=== PATIENT | male | born 1990 | race Two or more races ===

== ENCOUNTER 2024-09-28 17:02 | Inpatient (IN) | payer BC, OTHER ==
[~2024-09-28] VITALS: Ht 188 cm; Wt 114.2 kg
--- NOTE | 2024-09-28 17:20 | ED.PDOC ---
GI ASSESSMENT HPI Comments 34-year-old male brought in by self complaining of lower abdominal pain, nausea, bilious vomiting, and watery diarrhea for the past 4-5 days. He states he is unable to tolerate any food or liquids. He denies fever or known sick contacts. He states he did travel here for work and ate at a restaurant after which he developed the symptoms. Chief Complaint: Abdominal Pain Time Seen by MD: 17:10 Allergies: Coded Allergies: NO KNOWN ALLERGIES (Unverified , 09/28/24) Home Meds Reported Medications Triazolam (Triazolam) 0.125 Mg Tab, 3 TAB PO 09/29/24 Quetiapine Fumerate (QUETIAPINE FUMARATE) 25 Mg Tab, 1-3 TAB PO QHSP PRN for insomnia 09/29/24 Gabapentin (Gabapentin) 300 Mg Cap, PO 09/29/24 Hydroxyzine Hcl (Hydroxyzine Hcl) 25 Mg Tab, 1 TAB PO TID 09/29/24 Information Source: Patient Mode of Arrival: Ambulatory Past Medical History PAST MEDICAL HISTORY: Denies Surgical History: Appendectomy, Hernia Repair Family History Family History: Reviewed,noncontributory to illness Social History Smoker: Quit Greater Than 1 Year Alcohol: Denies ETOH Use Drugs: Denies Drug Use Lives In: Home All Other Systems: Reviewed and Negative (Comprehensive systems review obtained and negative except for what is stated in the HPI.) Physical Exam General Appearance: No Apparent Distress HEENT: Other (Pupils and face symmetric. Moist mucous membranes.) Neck: Full Range of Motion, Normal Inspection Respiratory: Lungs Clear, No Accessory Muscle Use, No Respiratory Distress, Normal Breath Sounds Cardiovascular: No Edema, No JVD, Regular Rate/Rhythm Breast Exam: Deferred Gastrointestinal: Soft, Tenderness (Generalized lower abdominal tenderness to palpation. Nontender to percussion. No rebound or guarding.) Genitalia: Deferred Pelvic: Deferred Rectal: Deferred Extremities: Normal inspection, Normal range of motion, Non-tender, No pedal edema Neurologic: Alert (Oriented x4), Normal Affect, Normal Mood, Other (Ambulatory) Cerebellar Function: NOT DONE Reflexes: NOT DONE Skin: Dry, Normal Color, Warm Lymphatic: NOT DONE Was a procedure done? Was a procedure done?: No GI differential Dx Differential Diagnosis: Diverticular disease, Gastritis/PUD, Gastroenteritis, Inflammatory BD, Ischemic Bowel, UTI, Dehydration, Diabetes/ DKA, Electrolyte Imbalance, Food Poisoning, Bacterial, Viral, Hypovolemia, Other (Colitis) X-Ray, Labs, Meds, VS Vital Signs Date Time Temp Pulse Resp B/P (MAP) Pulse Ox O2 Delivery O2 Flow Rate FiO2 09/28/24 18:38 78 18 135/76 09/28/24 17:17 98.3 89 22 130/101 (111) 96 98.3 Lab Test 09/28/24 17:22 09/28/24 17:13 Range/Units White Blood Count 9.6 4.4-10.8 10^3/uL Red Blood Count 5.98 H 4.5-5.90 10^6/uL Hemoglobin 16.2 13.5-17.5 g/dL Hematocrit 46.4 41.0-53.0 % Mean Corpuscular Volume 77.7 L 80.0-100.0 fL Mean Corpuscular Hemoglobin 27.1 L 28.0-32.0 pg Mean Corpuscular Hemoglobin Concent 34.9 32.0-36.0 g/dL Red Cell Distribution Width 15.2 H 11.8-14.3 % Platelet Count 297 140-450 10^3/uL Mean Platelet Volume 8.1 6.9-10.8 fL Neutrophils (%) (Auto) 70.9 37.0-80.0 % Lymphocytes (%) (Auto) 19.6 10.0-50.0 % Monocytes (%) (Auto) 9.2 0.0-12.0 % Eosinophils (%) (Auto) 0.0 0.0-7.0 % Basophils (%) (Auto) 0.3 0.0-2.0 % Neutrophils # (Auto) 6.8 1.6-8.6 10 ^3/uL Lymphocytes # (Auto) 1.9 0.4-5.4 10 ^3/uL Monocytes # (Auto) 0.9 0-1.3 10 ^3/uL Eosinophils # (Auto) 0 0-0.8 10 ^3/uL Basophils # (Auto) 0 0-0.2 10 ^3/uL Nucleated Red Blood Cells 0.0 % Sodium Level 145 136-145 mmol/L Potassium Level 3.5 3.5-5.1 mmol/L Chloride Level 106 98-107 mmol/L Carbon Dioxide Level 26 20-31 mmol/L Anion Gap 13 5-15 Blood Urea Nitrogen 26 H 9-23 mg/dL Creatinine 1.09 0.700-1.30 mg/dL Glomerular Filtration Rate Calc 91 >90 mL/min BUN/Creatinine Ratio 23.9 H 10.0-20.0 Serum Glucose 106 74-106 mg/dL Calcium Level 10.5 H 8.7-10.4 mg/dL Total Bilirubin 1.1 H 0.2-1.0 mg/dL Aspartate Amino Transferase (AST) 17 13-40 U/L Alanine Aminotransferase (ALT) 44 H 7-40 U/L Alkaline Phosphatase 87 46-116 U/L Total Protein 8.1 5.7-8.2 g/dL Albumin 5.4 H 3.2-4.8 g/dL Urine Color Yellow Yellow Urine Clarity Clear Clear Urine pH 6.0 5.0-9.0 Urine Specific [place] 1.037 H 1.001-1.035 Urine Protein 1+ H Negative Urine Ketones 2+ H Negative Urine Blood Negative Negative /uL Urine Nitrite Negative Negative Urine Bilirubin Negative Negative Urine Urobilinogen Normal Negative mg/dL Urine Leukocyte Esterase Negative Negative /uL Urine RBC 1 0 - 3 /hpf Urine Microscopic WBC < 1 0-3 /HPF Urine Squamous Epithelial Cells Few <5 /hpf Urine Bacteria None seen None Seen /hpf Urine Mucus Few None Seen Urine Glucose Normal Normal mg/dL Current Medications Medications (Trade) Dose Ordered Sig/Jacqui Route Start Time Stop Time Status Last Admin Sodium Chloride 2,000 ml @ 1,000 mls/hr Q2H ONCE IV 09/28/24 17:15 09/28/24 19:14 DC 09/28/24 18:26 Ondansetron HCl (Zofran) 4 mg ONCE ONCE IV 09/28/24 17:15 09/28/24 17:17 DC 09/28/24 18:26 Pantoprazole Sodium (Protonix) 40 mg ONCE ONCE IV 09/28/24 17:15 09/28/24 17:17 DC 09/28/24 18:26 Morphine Sulfate 4 mg ONCE ONCE IV 09/28/24 17:15 09/28/24 17:17 DC 09/28/24 18:38 Piperacillin Sod/ Tazobactam Sod 100 ml @ 100 mls/hr ONCE ONCE IV 09/28/24 17:30 09/28/24 18:29 DC 09/28/24 18:26 [facility] [id number] [facility] [id number] Ph: [phone] DIAGNOSTIC IMAGING Diagnostic Imaging Report : [id number] Signed PATIENT: BOGDAN REEDCCT: [id number] UNIT: [id number] : 1990 LOC: ER ROOM / BED: / AGE / SEX: 34 / M ADM STATUS: REG ER SERVICE 1712 ORDERING PHYSICIAN: GAY CARMONA MD PROCEDURE(s): ABPL - CT AB PEL WO CON-NO ORAL OR IV REASON: Lower abdominal pain, bilious vomiting, diarrhea ORDER NUMBER(s): [id number], ACCESSION NUMBER(s): [id number] Indication: Lower abdominal pain, bilious vomiting, diarrhea Technique: CT axial images of the abdomen and pelvis are obtained without contrast. Coronal and sagittal reformats were obtained. Radiation Dose Information: CTDI volume is 20.48 mGy. Dose-length product is 1179.26 mGy*cm Comparison: None FINDINGS: There is limited interpretation of the abdomen and pelvis without administration of intravenous contrast. Lung bases demonstrate no pleural effusion. Adrenal glands, spleen, pancreas and liver unremarkable in shape. No CT evidence for cholelithiasis. The kidneys demonstrate no hydronephrosis, nephrolithiasis. There is proximal gastric wall thickening and perigastric lymphadenopathy up to 11 mm. Small bowel loops are normal in caliber. Colonic diverticular disease. Bladder partially distended. No free pelvic fluid. No inguinal lymphadenopathy. No aggressive osseous process. [id number] thoracolumbar degenerative disc disease. IMPRESSION: 1. Proximal gastric wall thickening with perigastric lymphadenopathy, concerning for possible gastric neoplasm. Recommend GI consultation for further evaluation. ATED BY: ASMITA VILLAGOMEZ MD DICTATED DATE/TIME: 09/28/24 0423 X-Ray, Labs, Meds, VS Comment 34-year-old male with a history of 2 hernia repairs and appendectomy brought in by self complaining of lower abdominal pain, bilious vomiting and watery diarrhea Vitals remarkable for respiratory rate 22, BP 130/101 Exam remarkable for generalized lower abdominal tenderness to palpation Rhythm strip independently interpreted by me: Sinus rhythm, rate 89, no ectopy. CT abdomen and pelvis IMPRESSION: 1. Proximal gastric wall thickening with perigastric lymphadenopathy, concerning for possible gastric neoplasm. Recommend GI consultation for further evaluation. CBC unremarkable, CMP remarkable for BUN 26, UA positive for ketones, protein consistent with volume contraction Patient treated with the following in the ED: 2 L 0.9 normal saline IV bolus, morphine 4 mg IV, Zofran 4 mg IV, Protonix 40 mg IV, zosyn 4.5g IV On re-evaluation, patient states symptoms are improving. Vitals were stable. Repeat abdominal exam is benign. He is tolerating p.o. fluids. Time of 1ST Reevaluation: 17:45 Reevaluation 1ST: Unchanged Time of 2ND Reevaluation: 18:59 Reevaluation 2ND: Improved Patient Education/Counseling: Diagnosis, Treatment, Need For Follow Up Family Education/Counseling: No Family Present Sepsis Recent Procedure: No On Antibiotic Therapy: No Respiratory Rate >20: Yes Heart Rate >90: No Temp<36 C (96.8 F) or >38.3 C: No SBP <90 or MAP <65 mmHG: No New Acute Mental Status Change: No Is the patient on CPAP, BIPAP,: No IV fluid given: Yes Departure 1 Departure Time of Disposition: 18:59 Impression: Primary Impression: Vomiting and diarrhea Additional Impressions: Gastric wall thickening Lymphadenopathy of greater curvature of stomach Disposition: ADMITTED INPATIENT Admit to: Med Surg Condition: Guarded Critical Care Note Critical Care Time?: No Stability Stability form required: No Heart Score Heart Score: Heart Score Response (Comments) Value History N/A 0 EKG N/A 0 Age N/A 0 Risk Factors N/A 0 Troponin N/A 0 Total 0 I personally scribed for GAY CARMONA MD ([email or web address]) on 09/29/24 at 01:22. Electronically submitted by Francesco Childress ([email or web address]). GAY CARMONA MD Sep 28, 2024 17:20
[2024-09-28 17:40] LABS: Basophils # (auto) 0 10 ^3/uL (0-0.2); Basophils % (auto) 0.3 % (0.0-2.0); Eosinophils # (auto) 0 10 ^3/uL (0-0.8); Hematocrit 46.4 % (41.0-53.0); Hemoglobin 16.2 g/dL (13.5-17.5); Lymphocytes # (auto) 1.9 10 ^3/uL (0.4-5.4); Lymphocytes % (auto) 19.6 % (10.0-50.0); Mean Corpuscular Hemoglobin 27.1 pg (28.0-32.0); Mean Corpuscular Hgb Conc. 34.9 g/dL (32.0-36.0); Mean Corpuscular Volume 77.7 fL (80.0-100.0); Monocytes # (auto) 0.9 10 ^3/uL (0-1.3); Monocytes % (auto) 9.2 % (0.0-12.0); Neutrophils # (auto) 6.8 10 ^3/uL (1.6-8.6); Neutrophils % (auto) 70.9 % (37.0-80.0); Platelet Count (auto) 297 10^3/uL (140-450); Red Blood Cells 5.98 10^6/uL (4.5-5.90); Red Cell Distribution Width 15.2 % (11.8-14.3); White Blood Cell 9.6 10^3/uL (4.4-10.8)
[2024-09-28 17:54] LABS: Urine Bacteria None Seen /hpf (None Seen)
[2024-09-28 18:02] LABS: Alkaline Phosphatase 87 U/L (46-116); Anion Gap 13 (5-15); Aspartate Aminotransferase 17 U/L (13-40); BUN/Creatinine Ratio 23.9 (10.0-20.0); Carbon Dioxide 26 mmol/L (20-31); Chloride 106 mmol/L (98-107); Sodium 145 mmol/L (136-145); Total Protein 8.1 g/dL (5.7-8.2)
[2024-09-28 18:03] LABS: Alanine Aminotransferase 44 U/L (7-40); Albumin 5.4 g/dL (3.2-4.8); Bilirubin, Total 1.1 mg/dL (0.2-1.0); Blood Urea Nitrogen 26 mg/dL (9-23); Calcium 10.5 mg/dL (8.7-10.4); Glucose 106 mg/dL (74-106); Potassium 3.5 mmol/L (3.5-5.1)
[2024-09-28 18:23] LABS: Urine Blood Negative /uL (Negative); Urine Clarity Clear (Clear); Urine Color Yellow (Yellow); Urine Mucus FEW (None Seen); Urine Protein, UAD 1+ (Negative); Urine Specific Gravity 1.037 (1.001-1.035); Urine Squamous Epithelial Cell FEW /hpf (<5); Urine Urobilinogen Normal (Negative); Urine WBC < 1 /HPF (0-3)
[2024-09-28] MEDS: ONDANSETRON HCL 4 MG/2 ML VIAL IV ONE (18:26)
[2024-09-28] MEDS: PIPERACILLIN-TAZO 4.5GM 100 ML IV ONE (18:26)
[2024-09-28] MEDS: SODIUM CHLORIDE 0.9% 2,000 ML IV ONE (18:26)
[2024-09-28] MEDS: PANTOPRAZOLE 40 MG/10 ML VIAL INJ IV ONE (18:26)
[2024-09-28] MEDS: MORPHINE SULFATE 4 MG/ML SYR/VIAL IV ONE (18:38)
--- NOTE | 2024-09-28 18:41 | DVH ---
Indication: Lower abdominal pain, bilious vomiting, diarrhea Technique: CT axial images of the abdomen and pelvis are obtained without contrast. Coronal and sagit dylan reformats were obtained. Radiation Dose Information: CTDI volume is 20.48 mGy. Dose-length product is 1179.26 mGy*cm Comparison: None FINDINGS: There is limited interpretation of the abdomen and pelvis without administration of intravenous contr ast. Lung bases demonstrate no pleural effusion. Adrenal glands, spleen, pancreas and liver unremarkable in shape. No CT evidence for cholelithiasis. The kidneys demonstrate no hydronephrosis, nephrolithiasis. There is proximal gastric wall thickening and perigastric lymphadenopathy up to 11 mm. Small bowel lo ops are normal in caliber. Colonic diverticular disease. Bladder partially distended. No free pelvic fluid. No inguinal lymphadenopathy. No aggressive osseous process. Uelv-[id number] thoracolumbar degenerative disc disease. IMPRESSION: 1. Proximal gastric wall thickening with perigastric lymphadenopathy, concerning for possible gastric neoplasm. Recommend GI consultation for further evaluation.
[2024-09-28] MEDS ORDERED: ACETAMINOPHEN 325 MG TAB PO PRN (19:15)
[2024-09-28] MEDS ORDERED: ONDANSETRON HCL 4 MG/2 ML VIAL IV PRN (19:15)
[2024-09-28] MEDS: SODIUM CHLORIDE 0.9% 1,000 ML IV ONE (20:06)
--- NOTE | 2024-09-28 21:09 | DVHHP2 ---
History of Present Illness Reason for Visit: Nausea and vomiting History of Present Illness 34-year-old male presents for evaluation of nausea and vomiting. Patient reports recently returning from a trip and has been vomiting for the past five days. States having watery diarrhea and diffuse abdominal pain. Denies any recent weight loss. No fever or chills. No other acute complaints. Past Medical History Denies Past Surgical History Hernia repair and appendectomy Family History Noncontributory Smoke: No ALCOHOL: none Drugs: None Lives: with Family Review of Systems Review of Systems Review of systems are currently negative otherwise addressed in HPI. Allergies: Coded Allergies: NO KNOWN ALLERGIES (Unverified , 09/28/24) Medications Current Medications Medications Dose Ordered Sig/Jacqui Route Start Time Stop Time Status Last Admin Dose Admin Pantoprazole Sodium 40 mg DAILY IV 09/29/24 10:00 Acetaminophen/ Hydrocodone Bitart 1 tab Q4HP PRN PO 09/28/24 19:15 Ondansetron HCl 4 mg Q4HP PRN IV 09/28/24 19:15 Acetaminophen 650 mg Q6HP PRN PO 09/28/24 19:15 Metronidazole 100 ml @ 100 mls/hr Q12HR IV 09/28/24 22:00 UNV Exam Vital Signs Vital Signs Date Time Temp Pulse Resp B/P (MAP) Pulse Ox O2 Delivery O2 Flow Rate FiO2 09/28/24 19:48 98.1 79 17 122/80 (94) 64 98.1 09/28/24 19:48 Room Air Exam Gen: 34-year-old male in mild distress Skin: Warm, dry, normal color and texture, no rash. HEENT: Normocephalic atraumatic, mucous membranes moist and pink. Neck: Cervical and supraclavicular nodes normal without enlargement, trachea is midline, thyroid gland is normal without masses. Pulmonary: Clear to auscultation and percussion bilaterally. Cardiac: Regular rate and rhythm. No murmur Abdomen: Soft, diffuse tenderness, nondistended, bowel sounds present all 4 quadrants, no guarding, no rigidity, no organomegaly. Extremities: No cyanosis, clubbing, no edema Neuro: Cranial nerves II through XII grossly intact, normal affect and speech, no focal motor deficits. Labs/Xrays ORDERING PHYSICIAN: GAY CARMONA MD PROCEDURE(s): ABPL - CT AB PEL WO CON-NO ORAL OR IV REASON: Lower abdominal pain, bilious vomiting, diarrhea ORDER NUMBER(s): [id number], ACCESSION NUMBER(s): [id number] Indication: Lower abdominal pain, bilious vomiting, diarrhea Technique: CT axial images of the abdomen and pelvis are obtained without contrast. Coronal and sagittal reformats were obtained. Radiation Dose Information: CTDI volume is 20.48 mGy. Dose-length product is 1179.26 mGy*cm Comparison: None FINDINGS: There is limited interpretation of the abdomen and pelvis without administration of intravenous contrast. Lung bases demonstrate no pleural effusion. Adrenal glands, spleen, pancreas and liver unremarkable in shape. No CT evidence for cholelithiasis. The kidneys demonstrate no hydronephrosis, nephrolithiasis. There is proximal gastric wall thickening and perigastric lymphadenopathy up to 11 mm. Small bowel loops are normal in caliber. Colonic diverticular disease. Bladder partially distended. No free pelvic fluid. No inguinal lymphadenopathy. No aggressive osseous process. [id number] thoracolumbar degenerative disc disease. IMPRESSION: 1. Proximal gastric wall thickening with perigastric lymphadenopathy, concerning for possible gastric neoplasm. Recommend GI consultation for further evaluation. Labs Test 09/28/24 17:22 09/28/24 17:13 Range/Units White Blood Count 9.6 4.4-10.8 10^3/uL Red Blood Count 5.98 H 4.5-5.90 10^6/uL Hemoglobin 16.2 13.5-17.5 g/dL Hematocrit 46.4 41.0-53.0 % Mean Corpuscular Volume 77.7 L 80.0-100.0 fL Mean Corpuscular Hemoglobin 27.1 L 28.0-32.0 pg Mean Corpuscular Hemoglobin Concent 34.9 32.0-36.0 g/dL Red Cell Distribution Width 15.2 H 11.8-14.3 % Platelet Count 297 140-450 10^3/uL Mean Platelet Volume 8.1 6.9-10.8 fL Neutrophils (%) (Auto) 70.9 37.0-80.0 % Lymphocytes (%) (Auto) 19.6 10.0-50.0 % Monocytes (%) (Auto) 9.2 0.0-12.0 % Eosinophils (%) (Auto) 0.0 0.0-7.0 % Basophils (%) (Auto) 0.3 0.0-2.0 % Neutrophils # (Auto) 6.8 1.6-8.6 10 ^3/uL Lymphocytes # (Auto) 1.9 0.4-5.4 10 ^3/uL Monocytes # (Auto) 0.9 0-1.3 10 ^3/uL Eosinophils # (Auto) 0 0-0.8 10 ^3/uL Basophils # (Auto) 0 0-0.2 10 ^3/uL Nucleated Red Blood Cells 0.0 % Sodium Level 145 136-145 mmol/L Potassium Level 3.5 3.5-5.1 mmol/L Chloride Level 106 98-107 mmol/L Carbon Dioxide Level 26 20-31 mmol/L Anion Gap 13 5-15 Blood Urea Nitrogen 26 H 9-23 mg/dL Creatinine 1.09 0.700-1.30 mg/dL Glomerular Filtration Rate Calc 91 >90 mL/min BUN/Creatinine Ratio 23.9 H 10.0-20.0 Serum Glucose 106 74-106 mg/dL Calcium Level 10.5 H 8.7-10.4 mg/dL Total Bilirubin 1.1 H 0.2-1.0 mg/dL Aspartate Amino Transferase (AST) 17 13-40 U/L Alanine Aminotransferase (ALT) 44 H 7-40 U/L Alkaline Phosphatase 87 46-116 U/L Total Protein 8.1 5.7-8.2 g/dL Albumin 5.4 H 3.2-4.8 g/dL Urine Color Yellow Yellow Urine Clarity Clear Clear Urine pH 6.0 5.0-9.0 Urine Specific [place] 1.037 H 1.001-1.035 Urine Protein 1+ H Negative Urine Ketones 2+ H Negative Urine Blood Negative Negative /uL Urine Nitrite Negative Negative Urine Bilirubin Negative Negative Urine Urobilinogen Normal Negative mg/dL Urine Leukocyte Esterase Negative Negative /uL Urine RBC 1 0 - 3 /hpf Urine Microscopic WBC < 1 0-3 /HPF Urine Squamous Epithelial Cells Few <5 /hpf Urine Bacteria None seen None Seen /hpf Urine Mucus Few None Seen Urine Glucose Normal Normal mg/dL Assessment/Plan Assessment/Plan Assessment Acute abdominal pain Acute gastroenteritis Questionable gastric neoplasm Mild transaminitis Plan Admit the patient to [facility] to the hospitalist GI consult Clear liquid diet Flagyl Maintenance IV fluids Pain management Continue treatment per orders Plan discussed with: Patient My Orders Orders - VAUGHN PITTMAN Procedure Category Date Status Time Admit ADMIT 09/28/24 Transmitted 19:04 Pantoprazole PHA 09/29/24 In Process (Protonix) 10:00 Sodium Chloride 0.9% PHA 09/28/24 In Process 19:15 * Gi [facility] [employer] Officer CONS 09/28/24 Transmitted 19:06 Hydrocodone-Acet PHA 09/28/24 In Process 5/325mg Tab ([place] 19:15 Ondansetron Hcl PHA 09/28/24 In Process (Zofran) 19:15 Complete Blood Count LAB 09/29/24 Verified 04:00 Comprehensive LAB 09/29/24 Verified Metabolic Panel 04:00 Condition: Stable CYNDI 09/28/24 In Process 19:06 Acetaminophen Tablet PHA 09/28/24 In Process (Tylenol Tablet) 19:15 Clear Liq Diet DIET 09/29/24 Transmitted Breakfast Bedrest With Bathroom CYNDI 09/28/24 In Process Privileg 19:06 Stool Bacterial SATNAM 09/28/24 Uncollected Culture 21:03 Metronidazole PHA 09/28/24 Logged 500mg/100ml (Flagyl 22:00 Date of Service: Sep 28, 2024 Billing Provider: VAUGHN PITTMAN Common Visit Codes: [id number] INP/OBS CARE (HIGH) VAUGHN PITTMAN Sep 28, 2024 21:09
[2024-09-28 21:26] VITALS: PULSE 79; RESP 17; O2SAT 94
[2024-09-28 21:40] VITALS: BP 142/71; PULSE 60; RESP 19; TEMP 98.8; O2SAT 98
[2024-09-28 22:14] VITALS: PULSE 87; RESP 18; O2SAT 98
[2024-09-28] MEDS: metroNIDAZOLE 500MG/100ML 100 ML IV SCH (22:44)
[2024-09-28] MEDS: HYDROcodone-ACET 5/325MG TAB PO PRN (22:45)
[2024-09-28 23:16] VITALS: BP 129/87; PULSE 78; RESP 16; TEMP 98.2; O2SAT 96
[2024-09-29] VITALS (10 sets, daily range): BP systolic 121–125; BP diastolic 75–83; PULSE 58–84; RESP 12–22; TEMP 37.5; O2SAT 96–98
[2024-09-29] MEDS ORDERED: QUET1TAB11 PO (00:30)
[2024-09-29] MEDS ORDERED: TRIA0.1212 PO (00:30)
[2024-09-29] MEDS ORDERED: HYDR-3682 PO (00:30)
[2024-09-29] MEDS ORDERED: GABA-1250 PO (00:30)
[2024-09-29] MEDS: MELATONIN 5 MG TAB PO ONE (01:02)
[2024-09-29 06:26] LABS: Basophils # (auto) 0 10 ^3/uL (0-0.2); Eosinophils # (auto) 0 10 ^3/uL (0-0.8); Hemoglobin 14.3 g/dL (13.5-17.5); Neutrophils # (auto) 4.7 10 ^3/uL (1.6-8.6)
[2024-09-29 06:33] LABS: Basophils % (auto) 0.5 % (0.0-2.0); Eosinophils % (auto) 0.1 % (0.0-7.0); Hematocrit 40.7 % (41.0-53.0); Lymphocytes # (auto) 2.3 10 ^3/uL (0.4-5.4); Lymphocytes % (auto) 29.3 % (10.0-50.0); Mean Corpuscular Hemoglobin 27.1 pg (28.0-32.0); Mean Corpuscular Hgb Conc. 35.1 g/dL (32.0-36.0); Monocytes # (auto) 0.8 10 ^3/uL (0-1.3); Monocytes % (auto) 10.6 % (0.0-12.0); Neutrophils % (auto) 59.5 % (37.0-80.0); Platelet Count (auto) 254 10^3/uL (140-450); Red Blood Cells 5.29 10^6/uL (4.5-5.90); White Blood Cell 7.9 10^3/uL (4.4-10.8)
[2024-09-29 06:37] LABS: Alanine Aminotransferase 28 U/L (7-40); Albumin 4.5 g/dL (3.2-4.8); Alkaline Phosphatase 69 U/L (46-116); Anion Gap 12 (5-15); Blood Urea Nitrogen 21 mg/dL (9-23); Calcium 9.2 mg/dL (8.7-10.4); Carbon Dioxide 25 mmol/L (20-31); Chloride 106 mmol/L (98-107); Glucose 104 mg/dL (74-106); Sodium 143 mmol/L (136-145); Total Protein 6.7 g/dL (5.7-8.2)
[2024-09-29 06:42] LABS: Aspartate Aminotransferase 8 U/L (13-40); Potassium 3.2 mmol/L (3.5-5.1)
[2024-09-29] MEDS: PANTOPRAZOLE 40 MG/10 ML VIAL INJ IV SCH (09:30)
--- NOTE | 2024-09-29 12:22 | DVHINCON2 ---
GI Consult Consult Note GI consult note Date of Consultation: 09/29/2024 Chief Complaint: Gastro neoplasm Referring Physician: Wilbert COOPER H&P: 34-year-old male presents with symptoms of nausea vomiting and diarrhea, for the past five days. Denies hematemesis. Denies history of GERD symptoms. Patient has loose stools mostly watery in nature, denies melena or red blood in stool. Patient has a wound on his left upper thigh with staph infection and has been antibiotics in the past. No EGD in the past. Denies blood thinners Past Medical History: Denies Past Surgical History: Hernia repair appendectomy Social History: NO smoking, drinking ETOH and use of illegal drugs. Family History: Noncontributory Review of Systems: Constitutional: no fever, chill, weight loss HEENT: no eye pain, no hearing loss, no oral lesion, no scleral icterus Heart: no chest pain, no chest pressure Lung: no cough, no dyspnea with exertion Abdomen: see HPI Physical exam: General: NAD, AAOX3 Chest: lung liao clear to auscultation Heart: RRR, no murmur Abdomen: non-distended, + epigastric tenderness to palpation, +BS Labs: Labs Test 09/29/24 05:43 09/28/24 17:13 Range/Units White Blood Count 7.9 4.4-10.8 10^3/uL Red Blood Count 5.29 4.5-5.90 10^6/uL Hemoglobin 14.3 13.5-17.5 g/dL Hematocrit 40.7 #L 41.0-53.0 % Mean Corpuscular Volume 77.0 L 80.0-100.0 fL Mean Corpuscular Hemoglobin 27.1 L 28.0-32.0 pg Mean Corpuscular Hemoglobin Concent 35.1 32.0-36.0 g/dL Red Cell Distribution Width 15.0 H 11.8-14.3 % Platelet Count 254 140-450 10^3/uL Mean Platelet Volume 8.0 6.9-10.8 fL Neutrophils (%) (Auto) 59.5 37.0-80.0 % Lymphocytes (%) (Auto) 29.3 10.0-50.0 % Monocytes (%) (Auto) 10.6 0.0-12.0 % Eosinophils (%) (Auto) 0.1 0.0-7.0 % Basophils (%) (Auto) 0.5 0.0-2.0 % Neutrophils # (Auto) 4.7 1.6-8.6 10 ^3/uL Lymphocytes # (Auto) 2.3 0.4-5.4 10 ^3/uL Monocytes # (Auto) 0.8 0-1.3 10 ^3/uL Eosinophils # (Auto) 0 0-0.8 10 ^3/uL Basophils # (Auto) 0 0-0.2 10 ^3/uL Nucleated Red Blood Cells 0.0 % Sodium Level 143 136-145 mmol/L Potassium Level 3.2 L 3.5-5.1 mmol/L Chloride Level 106 98-107 mmol/L Carbon Dioxide Level 25 20-31 mmol/L Anion Gap 12 5-15 Blood Urea Nitrogen 21 9-23 mg/dL Creatinine 1.00 0.700-1.30 mg/dL Glomerular Filtration Rate Calc 101 >90 mL/min BUN/Creatinine Ratio 21.0 H 10.0-20.0 Serum Glucose 104 74-106 mg/dL Calcium Level 9.2 8.7-10.4 mg/dL Total Bilirubin 1.0 0.2-1.0 mg/dL Aspartate Amino Transferase (AST) 8 L 13-40 U/L Alanine Aminotransferase (ALT) 28 7-40 U/L Alkaline Phosphatase 69 46-116 U/L Total Protein 6.7 5.7-8.2 g/dL Albumin 4.5 3.2-4.8 g/dL Urine Color Yellow Yellow Urine Clarity Clear Clear Urine pH 6.0 5.0-9.0 Urine Specific [place] 1.037 H 1.001-1.035 Urine Protein 1+ H Negative Urine Ketones 2+ H Negative Urine Blood Negative Negative /uL Urine Nitrite Negative Negative Urine Bilirubin Negative Negative Urine Urobilinogen Normal Negative mg/dL Urine Leukocyte Esterase Negative Negative /uL Urine RBC 1 0 - 3 /hpf Urine Microscopic WBC < 1 0-3 /HPF Urine Squamous Epithelial Cells Few <5 /hpf Urine Bacteria None seen None Seen /hpf Urine Mucus Few None Seen Urine Glucose Normal Normal mg/dL Imaging: CT abdomen pelvis IMPRESSION: 1. Proximal gastric wall thickening with perigastric lymphadenopathy, concerning for possible gastric neoplasm. Recommend GI consultation for further evaluation. Assessment: Abdominal pain Possible gastroenteritis Possible gastric neoplasm Per CT Plan: Discussed with Dr. Corona - Pt will be scheduled for an EGD today 09/29/2024. Pt was informed of the risks (bleeding, infection, perforation, reaction to sedation medications and cardiopulmonary arrest) and benefit and is agreeable to undergo the procedures. Further orders to follow procedure Discussed plan with patient and RN Thank you for this consult Date of Service: Sep 29, 2024 Billing Provider: SUZETTE HI Common Visit Codes: CONSULT ONLY Consultation Codes: [id number] CONSULT <60MIN SUZETTE HI Sep 29, 2024 12:22
[2024-09-29 13:09] LABS: INR 1.11 (0.9-1.15); Partial Thromboplastin Time 29.3 SEC (24.5-34.5); Prothrombin Time 11.6 sec (9.3-11.8)
[2024-09-29] MEDS ORDERED: PANT40TA2 PO (13:48)
[2024-09-29] MEDS ORDERED: SODIUM CHLORIDE LOCK 10 ML ONE (16:24)
[2024-09-29] MEDS: LIDOCAINE VISCOUS 2% 15ML UD ONE (16:24)
[2024-09-29] MEDS: fentaNYL CITRATE 100 MCG/2 ML VL ONE ×2 (16:26→16:34)
[2024-09-29] MEDS: MIDAZOLAM HCL 5 MG/ML-1ML VIAL ONE (16:26)
[2024-09-29] MEDS: diphenhdrAMINE HCL 50 MG/1 ML VL ONE (16:26)
[2024-09-29] MEDS: MIDAZOLAM HCL 2MG/2ML 2ml VIAL (1mg/ml) ONE (16:36)
--- NOTE | 2024-09-29 16:48 | DVHOP2 ---
Operative Report DATE OF OPERATION: 09/29/24 PROCEDURE: Upper Endoscopy with biopsy. PREOPERATIVE INDICATION: The patient is a 34 -year-old male undergoing endoscopy for nausea vomiting and abnormal finding GI tract imaging POSTOPERATIVE DIAGNOSES: 1. 4 cm sliding-type hiatal hernia with grade B linear erosive esophagitis with esophageal ulcers extending into the distal 5 cm of the esophagus from which biopsies were obtained 2. Patient had [id number]-np-amrymglt gastritis with mucosal edema and hyperemia of the proximal stomach but there was no clear-cut evidence of any mass 3. There was mild linear antral gastritis 4. Patient had moderate to severe duodenitis of the duodenal bulb and postbulbar area 5. Otherwise normal examination up to the 2nd and 3rd part of the duodenum with no active bleeding and good bile drainage PROCEDURE PERFORMED BY: Britt Corona GI NURSE: Dave SCOPE: Olympus videoendoscope. ASA CLASS: 2 PREOPERATIVE MEDICATIONS: Versed 7 mg, Fentanyl 175 mcg, Benadryl 50 mg I administered moderate sedation throughout this _10_ minutes procedure. An independent trained observer pushed medications at my direction, and monitored the patient's level of consciousness and physiological status throughout. PROCEDURE IN DETAIL: After obtaining an informed consent, the patient was placed on left lateral decubitus position. The patient was then sedated with the above medications. A bite block was placed between his teeth. The endoscope was then passed through the oropharynx, into the esophagus, and through the stomach and pylorus up to the second and third part of the duodenum. The endoscope was then withdrawn. The 2nd and 3rd part of the duodenal showed mild duodenitis with superficial erosions. The duodenal bulb and postbulbar area showed azxxamtz-fg-knsjal duodenitis with hyperemia erythema Duodenal biopsies were obtained. The pre-pyloric area and antrum showed mild linear antral gastritis. Gastric biopsies were obtained. On retroflexion and straight on view the patient had no evidence of a proximal gastric mass but he did have hypertrophic gastritis with mucosal edema and hyperemia and gastric biopsies were obtained The endoscope was then withdrawn into distal esophagus where he had a 3-4 cm sliding-type hiatal hernia with grade B linear erosive esophagitis. Patient had esophageal ulcers extending into the distal 5-7 cm of the esophagus . Esophageal biopsies were obtained.The remaining distal and proximal esophagus and oropharynx were unremarkable The patient tolerated the procedure well without difficulty. COMPLICATIONS : None SPECIMENS: Duodenal biopsy Gastric biopsies GE junction biopsies DISPOSITION: Transfer back to the floor Stable PLAN: 1. Await for biopsy result 2. Will place pt on Protonix 40 mg bid p.o. 3. Carafate suspension 1 g p.o. 4 times a day 4. Start with full liquid diet advance to soft mechanical; Lifestyle and dietary modifications for GERD, DC aspirin NSAIDs smoking alcohol 5. Outpatient follow up with his primary doctor in [facility] and follow up with with my office via tele visit to review results of biopsies BRITT CORONA MD Sep 29, 2024 16:48
--- NOTE | 2024-09-29 17:32 | DVHDS2 ---
Discharge Summary Date of Admission Sep 28, 2024 at 19:04 Date of Discharge: Sep 29, 2024 Labs/Diagnostic Data: Laboratory Results Test 09/29/24 12:45 09/29/24 05:43 09/28/24 17:13 Prothrombin Time 11.6 sec (9.3-11.8) Prothrombin Time INR 1.11 (0.9-1.15) Activated Partial Thromboplast Time 29.3 SEC (24.5-34.5) White Blood Count 7.9 10^3/uL (4.4-10.8) Red Blood Count 5.29 10^6/uL (4.5-5.90) Hemoglobin 14.3 g/dL (13.5-17.5) Hematocrit 40.7 % (41.0-53.0) Mean Corpuscular Volume 77.0 fL (80.0-100.0) Mean Corpuscular Hemoglobin 27.1 pg (28.0-32.0) Mean Corpuscular Hemoglobin Concent 35.1 g/dL (32.0-36.0) Red Cell Distribution Width 15.0 % (11.8-14.3) Platelet Count 254 10^3/uL (140-450) Mean Platelet Volume 8.0 fL (6.9-10.8) Neutrophils (%) (Auto) 59.5 % (37.0-80.0) Lymphocytes (%) (Auto) 29.3 % (10.0-50.0) Monocytes (%) (Auto) 10.6 % (0.0-12.0) Eosinophils (%) (Auto) 0.1 % (0.0-7.0) Basophils (%) (Auto) 0.5 % (0.0-2.0) Neutrophils # (Auto) 4.7 10 ^3/uL (1.6-8.6) Lymphocytes # (Auto) 2.3 10 ^3/uL (0.4-5.4) Monocytes # (Auto) 0.8 10 ^3/uL (0-1.3) Eosinophils # (Auto) 0 10 ^3/uL (0-0.8) Basophils # (Auto) 0 10 ^3/uL (0-0.2) Nucleated Red Blood Cells 0.0 % Sodium Level 143 mmol/L (136-145) Potassium Level 3.2 mmol/L (3.5-5.1) Chloride Level 106 mmol/L (98-107) Carbon Dioxide Level 25 mmol/L (20-31) Anion Gap 12 (5-15) Blood Urea Nitrogen 21 mg/dL (9-23) Creatinine 1.00 mg/dL (0.700-1.30) Glomerular Filtration Rate Calc 101 mL/min (>90) BUN/Creatinine Ratio 21.0 (10.0-20.0) Serum Glucose 104 mg/dL (74-106) Calcium Level 9.2 mg/dL (8.7-10.4) Total Bilirubin 1.0 mg/dL (0.2-1.0) Aspartate Amino Transferase (AST) 8 U/L (13-40) Alanine Aminotransferase (ALT) 28 U/L (7-40) Alkaline Phosphatase 69 U/L (46-116) Total Protein 6.7 g/dL (5.7-8.2) Albumin 4.5 g/dL (3.2-4.8) Urine Color Yellow (Yellow) Urine Clarity Clear (Clear) Urine pH 6.0 (5.0-9.0) Urine Specific [place] 1.037 (1.001-1.035) Urine Protein 1+ (Negative) Urine Ketones 2+ (Negative) Urine Blood Negative /uL (Negative) Urine Nitrite Negative (Negative) Urine Bilirubin Negative (Negative) Urine Urobilinogen Normal mg/dL (Negative) Urine Leukocyte Esterase Negative /uL (Negative) Urine RBC 1 /hpf (0 - 3) Urine Microscopic WBC < 1 /HPF (0-3) Urine Squamous Epithelial Cells Few /hpf (<5) Urine Bacteria None seen /hpf (None Seen) Urine Mucus Few (None Seen) Urine Glucose Normal mg/dL (Normal) Other Laboratory Tests 09/29/24 05:43 Brief Hx & Hospital Course: 34-year-old male presents for evaluation of nausea and vomiting. Patient reports recently returning from a trip and has been vomiting for the past five days. States having watery diarrhea and diffuse abdominal pain. Denies any recent weight loss. No fever or chills. No other acute complaints He did well and nausea resolved Had EGD and will need to follow up for findings Condition at Discharge: Good Final Diagnosis/Problems List Viral gastroenteritis Gastritis Discharge Disposition: Home Discharge Instruct/Medications Diet: Regular Activity: No Restrictions, As Tolerated Follow Up/Referral: PCP in 7 days Medications: pantoprazole Discharge Statement: "Patient was advised to return to the ER or call 911 if any headaches, dizziness, shortness of breath, chest pain, abdominal pain, bleeding, fevers, or worsening of medical condition. Patient was counseled about treatment plan, medications, possible side effects, patientverbalized understanding. All questions were answered to the best of my ability. This discharge took greater then 30 minutes in planning, reviewing documentation, counseling the patient, and discussing with other team members." ASSESSMENT ASSESSMENT Assessment Viral gastroenteritis Gastritis Date of Service: Sep 29, 2024 Billing Provider: LEANDRO HARRY MD Common Visit Codes: 60053-PKU/OBS DISCH DAY >30min LEANDRO HARRY MD Sep 29, 2024 17:32
[2024-09-29] MEDS: SUCRALFATE 1 GM/10 ML ORAL SUSP PO ONE (18:32)
== END 2024-09-29 19:13 | disposition home or self-care (01) | DRG 392 ==
LOC: ER 17:02 → OVERFLOW 19:04 → WEST WING 19:05
PROVIDERS: ADMIT Hospitalist; ATTEND Hospitalist
PROC: 0DB68ZX Excision of Stomach, Via Natural or Artificial Opening Endoscopic, Diagnostic (ICD-10-PCS; 2024-09-29)
PROC: 0DB48ZX Excision of Esophagogastric Junction, Via Natural or Artificial Opening Endoscopic, Diagnostic (ICD-10-PCS; 2024-09-29)
PROC: 0DB58ZX Excision of Esophagus, Via Natural or Artificial Opening Endoscopic, Diagnostic (ICD-10-PCS; 2024-09-29)
PROC: 0DB98ZX Excision of Duodenum, Via Natural or Artificial Opening Endoscopic, Diagnostic (ICD-10-PCS; principal; 2024-09-29 16:20)
DX: A08.4 Viral intestinal infection, unspecified (principal); K22.10 Ulcer of esophagus without bleeding; K29.60 Other gastritis without bleeding; R74.01 Elevation of levels of liver transaminase levels; Z20.822 Contact with and (suspected) exposure to COVID-19; R59.1 Generalized enlarged lymph nodes; K29.80 Duodenitis without bleeding; K44.9 Diaphragmatic hernia without obstruction or gangrene; Z87.891 Personal history of nicotine dependence; Z90.49 Acquired absence of other specified parts of digestive tract
CPT/HCPCS: 36415; 43239; 74176; 80053; 81001; 85025; 85610; 85730; 86850; 86900; 86901; 87045; 87081; 87205; 87427; 96365; 96375; G0378; J2250; J2405; J2470; J2543; J3490